=== PATIENT | male | born 1945 | race Caucasian/White ===

== ENCOUNTER 2022-07-23 07:45 | Emergency (ER) | payer MEDICARE, BC ==
[~2022-07-23] VITALS: Ht 198.1 cm; Wt 106.0 kg
[~2022-07-23 07:45] MED LIST: HYDR-4383 PO
[2022-07-23] MEDS ORDERED: ketorolac trometh inj. 60 MG/2 ML VIAL IM ONE (09:30)
[2022-07-23] MEDS ORDERED: HYDROcodone/acetaminophen 5mg/325mg tablet PO ONE (09:30)
[2022-07-23 10:38] LABS: RED BLOOD COUNT 4.07 X10'6 (4.70-6.10)
[2022-07-23 10:40] LABS: BASOPHILS % (AUTO) 0 % (0-1); EOSINOPHILS % (AUTO) 0 % (0-6); HEMATOCRIT 37.4 % (42.0-52.0); LYMPHOCYTES # (AUTO) 0.2 X10'3 (1.1-4.8); LYMPHOCYTES % (AUTO) 1.8 % (21-51); MEAN CORPUSCULAR HEMOGLOBIN 31.9 PG (27.0-31.0); MEAN CORPUSCULAR HGB CONC 34.7 g/dL (33.0-36.5); MEAN CORPUSCULAR VOLUME 91.9 FL (78-98); MEAN PLATELET VOLUME 7.4 FL (7.4-10.4); MONOCYTES # (AUTO) 0.7 X10'3 (0-0.9); MONOCYTES % (AUTO) 6.5 % (2-12); NEUTROPHILS # (AUTO) 9.9 X10'3 (1.8-7.7); NEUTROPHILS % (AUTO) 91.7 % (42-75); PLATELET COUNT 106 X10'3 (140-440); RED CELL DISTRIBUTION WIDTH 13.4 % (11.5-14.5); WHITE BLOOD COUNT 10.9 X10'3 (4.5-11.0)
[2022-07-23 10:51] LABS: ALANINE AMINOTRANSFERASE 25 U/L (12-78); ALBUMIN 2.8 G/DL (3.4-5.0); ALBUMIN/GLOBULIN RATIO 0.8 (1.1-1.5); ALKALINE PHOSPHATASE 93 IU/L (46-116); ANION GAP 11 (8-16); ASPARTATE AMINO TRANSFERASE 28 U/L (10-37); BLOOD UREA NITROGEN 17 MG/DL (7-18); BUN/CREATININE RATIO 16.2 (10.0-20.0); C-REACTIVE PROTEIN 15.66 MG/DL (0.0-0.5); CALCIUM 8.5 MG/DL (8.5-10.1); CHLORIDE 103 MMOL/L (99-107); CREATININE 1.05 MG/DL (0.60-1.10); GLUCOSE 155 MG/DL (70-104); MAGNESIUM 1.9 MG/DL (1.5-2.4); POTASSIUM 3.9 MMOL/L (3.5-5.1); SODIUM 136 MMOL/L (135-145); TOTAL CARBON DIOXIDE 22.2 MMOL/L (24-32); TOTAL PROTEIN 6.5 G/DL (6.4-8.2); eGFR 69 ML/MIN
[2022-07-23 11:29] LABS: CLARITY,URINE CLOUDY (Clear); COLOR,URINE YELLOW (Yellow); GLUCOSE, URINE NEGATIVE (Neg); KETONES,URINE 15 mg/dl (Neg); LEUKOCYTE ESTERASE ,URINE SMALL (Neg); NITRITES, URINE POSITIVE (Neg); OCCULT BLOOD,URINE SMALL (Neg); PROTEIN,URINE 30 mg/dl (Neg)
[2022-07-23 11:35] LABS: UA COLLECTION TYPE CLN CATCH MIDSTREAM
[2022-07-23 11:37] LABS: BACTERIA,URINE 4+ /HPF (Neg); MUCUS STRANDS NONE SEEN /LPF (Neg); RBC,URINE 0-2 /HPF (0-2); SQUAMOUS EPITHELIAL CELL,UR NONE SEEN /LPF (FEW); WBC,URINE 50-100 /HPF (0-4)
[2022-07-23] MEDS ORDERED: CEPH500C2 PO (12:35)
[2022-07-23] MEDS ORDERED: cephalexin 500mg capsule PO ONE (12:40)
[2022-07-23 12:57] VITALS: BP 116/71
== END 2022-07-23 13:15 | disposition home or self-care (01) ==
LOC: ER 07:45
DX: N39.0 Urinary tract infection, site not specified (principal); M54.50 Low back pain, unspecified; Z79.899 Other long term (current) drug therapy; Z79.1 Long term (current) use of non-steroidal anti-inflammatories (NSAID)
CPT/HCPCS: 10060; 36415; 71045; 80053; 81001; 83605; 83735; 84145; 85025; 85651; 86140; 87040; 87077; 87088; 87186; 96372; 99284; J1885

== ENCOUNTER 2022-07-25 06:02 | Emergency (ER) | payer MEDICARE, BC ==
[~2022-07-25] VITALS: Ht 198.1 cm; Wt 109.1 kg
[~2022-07-25 06:02] MED LIST changes: +CEPH500C2 PO
[2022-07-25] MEDS ORDERED: morphine 4 MG/ML inj SYRINge IV ONE (07:05)
[2022-07-25] MEDS ORDERED: ondansetron/PF 4mg/2ml inj IV ONE (07:05)
[2022-07-25 07:40] VITALS: BP 122/75
[2022-07-25] MEDS ORDERED: HYDR-3965 PO (09:13)
[2022-07-25] MEDS ORDERED: IBUP-1985 PO (09:13)
== END 2022-07-25 09:54 | disposition home or self-care (01) ==
LOC: ER 06:03
DX: M54.50 Low back pain, unspecified (principal)
CPT/HCPCS: 72131; 72192; 96374; 96375; 99285; J2270; J2405

== ENCOUNTER 2022-07-25 11:44 | Emergency (ER) | payer MEDICARE, BC ==
[~2022-07-25 11:44] MED LIST changes: +HYDR-3965 PO; +IBUP-1985 PO
== END 2022-07-25 12:15 | disposition left against medical advice (07) ==
LOC: ER 11:45
DX: Z00.00 Encounter for general adult medical examination without abnormal findings (principal); Z53.21 Procedure and treatment not carried out due to patient leaving prior to being seen by health care provider